=== PATIENT | female | born 1950 | race Caucasian/White ===

== ENCOUNTER → 2016-06-10 | Outpatient (CLI) | payer MEDICARE, BC ==
--- NOTE | 2016-06-10 16:12 | CT ---
EXAMINATION: CT paranasal sinuses HISTORY: Chronic sinusitis COMPARISON: None TECHNIQUE: Axial CT images obtained through the facial bones without contrast. Coronal and sagittal reconstructions obtained. FINDINGS: There is mild mucosal thickening within the left maxillary sinus. The ethmoid air cells, f rontal sinuses, and sphenoid sinuses are grossly patent. The sphenoethmoidal and frontoethmoidal rec esses are clear. The ostiomeatal complexes are clear bilaterally. Evidence of previous medial maxill ilya wall surgery is noted. The mastoid air cells are clear. The middle ears are also patent. No bony destruction or air-fluid level. The visualized facial bones appear grossly intact. Degenerative gladys nges are noted within the temporomandibular joints. The orbits and globes appear symmetric. IMPRESSION: 1. Mild left maxillary paranasal sinus disease, otherwise unremarkable sinuses.
== END ==
LOC: MW.DI 12:44
PROVIDERS: ATTEND Family Medicine
DX: J32.0 Chronic maxillary sinusitis (principal)
CPT/HCPCS: 70486; 70486-26

== ENCOUNTER 2017-01-06 15:07 | Emergency (ER) | payer MEDICARE, BC ==
[2017-01-06] MEDS ORDERED: Sodium Chloride 0.9% 10 ML Syringe FLUSH PRN (15:20)
[2017-01-06] MEDS ORDERED: Sodium Chloride 0.9% 1,000 ML IV ONE ×2 (15:20→17:12)
[2017-01-06] MEDS ORDERED: Ondansetron 4 MG/2 ML SDV IVPUSH ONE (15:20)
[2017-01-06] MEDS ORDERED: Sodium Chloride 0.9% 2.5 ML Syringe FLUSH PRN (15:20)
--- NOTE | 2017-01-06 15:58 | EDM.PDOC ---
ED HPI GENERAL MEDICAL PROBLEM - General Chief Complaint: Gastrointestinal Problem Stated Complaint: UNK Time Seen by Provider: 01/06/17 15:09 Source of Information: Reports: Patient History Limitations: Reports: No Limitations - History of Present Illness INITIAL COMMENTS - FREE TEXT/NARRATIVE: History of present illness: []Patient started having vomiting and diarrhea at 9:30 this morning denies any blood in her vomit or stool. She is not had any fevers or chills but has had sweats with diarrhea. She had a couple bad food exposures 2 and 3 days ago but did not have diarrhea until this morning. She has chronic gastrointestinal problems. Review of systems: As per history of present illness and below otherwise all systems reviewed and negative. Past medical history: As per history of present illness and as reviewed below otherwise noncontributory. Surgical history: As per history of present illness and as reviewed below otherwise noncontributory. Social history: No reported history of drug or alcohol abuse. Family history: As per history of present illness and as reviewed below otherwise noncontributory. Physical exam: General: Well developed, well nourished in NAD HEENT: Atraumatic, normocephalic, pupils reactive, negative for conjunctival pallor or scleral icterus, mucous membranes moist, throat clear, neck supple, nontender, trachea midline. Lungs: Clear to auscultation, breath sounds equal bilaterally, chest nontender. Heart: S1S2, regular, negative for clicks, rubs, or JVD. Abdomen: Decreased bowel sounds Soft, nondistended, nontender no rebound or guarding. Negative for masses or hepatosplenomegaly. Negative for costovertebral tenderness. Pelvis: Stable nontender. Genitourinary: Deferred. Rectal: Deferred. Extremities: Atraumatic, negative for cords or calf pain. Neurovascular unremarkable. Neuro: Awake, alert, oriented. Cranial nerves II through XII unremarkable. Cerebellum unremarkable. Motor and sensory unremarkable throughout. Exam nonfocal. Diagnostics: []CBC chemistry, UA and stool for C. difficile, salmonella, Shigella, sugar toxin Therapeutics: []IV fluids and Zofran given with improvement in symptoms Impression: []Acute gastroenteritis Plan: []Zofran every 6 hours as needed for nausea increase fluids as tolerated follow- up primary care physician return if symptoms worsen or change Definitive disposition and diagnosis as appropriate pending reevaluation and review of above. - Related Data Allergies Allergy/AdvReac Type Severity Reaction Status Date / Time hydrocodone Allergy Nausea and Verified 01/06/17 15:17 Vomiting morphine Allergy Nausea Verified 01/06/17 15:17 Home Meds: Home Meds Cefdinir 300 mg PO BID 01/06/17 [History] Esomeprazole [NexIUM] 40 mg PO ACBREAKFAST 01/06/17 [History] Fluticasone Propionate [Flonase Allergy Relief] 1 spray NS DAILY 01/06/17 [ History] Hydrochlorothiazide 25 mg PO DAILY 01/06/17 [History] Levothyroxine Sodium [Synthroid] 112 mcg PO ACBREAKFAST 01/06/17 [History] Losartan [Cozaar] 50 mg PO DAILY 01/06/17 [History] Ondansetron HCl [Zofran] 4 mg PO Q6HR PRN #16 tablet 01/06/17 [Rx] Potassium Chloride 20 meq PO DAILY 01/06/17 [History] Past Medical History HEENT History: Reports: None Cardiovascular History: Reports: Hypertension Respiratory History: Reports: None Gastrointestinal History: Reports: None Genitourinary History: Reports: None SQE History: Reports: None Musculoskeletal History: Reports: None Neurological History: Reports: None Psychiatric History: Reports: None Endocrine/Metabolic History: Reports: None Hematologic History: Reports: None Immunologic History: Reports: None Oncologic (Cancer) History: Reports: Thyroid Dermatologic History: Reports: None - Infectious Disease History Infectious Disease History: Reports: Chicken Pox, Measles - Past Surgical History Head Surgeries/Procedures: Reports: None HEENT Surgical History: Reports: None Cardiovascular Surgical History: Reports: None Respiratory Surgical History: Reports: None GI Surgical History: Reports: Cholecystectomy Female Surgical History: Reports: Hysterectomy Endocrine Surgical History: Reports: Thyroidectomy Musculoskeletal Surgical History: Reports: Knee Replacement Oncologic Surgical History: Reports: None Dermatological Surgical History: Reports: None Social & Family History - Family History Family Medical History: Noncontributory - Tobacco Use Smoking Status *Q: Never Smoker - Caffeine Use Caffeine Use: Reports: Coffee - Recreational Drug Use Recreational Drug Use: No ED ROS GENERAL - Review of Systems Review Of Systems: See Below (See history of present illness) ED EXAM, GI/ABD - Physical Exam Exam: See Below (See history of present illness) Course - Vital Signs Last Recorded V/S: Last Vital Signs Temp 36.3 C 01/06/17 15:17 Pulse 85 01/06/17 16:06 Resp 15 01/06/17 16:06 BP 143/68 H 01/06/17 16:06 Pulse Ox 99 01/06/17 16:06 - Orders/Labs/Meds Orders: Active Orders 24 hr Category Date Time Status CULTURE STOOL + CAMPY+SHIGATOX [RM] Stat Lab 01/06/17 16:10 Received Sodium Chloride 0.9% [Saline Flush] Med 01/06/17 15:20 Active 10 ml FLUSH ASDIRECTED PRN Sodium Chloride 0.9% [Saline Flush] Med 01/06/17 15:20 Active 2.5 ml FLUSH ASDIRECTED PRN Saline Lock Insert [OM.PC] Stat Oth 01/06/17 15:20 Ordered Medication Orders Sodium Chloride (Saline Flush) 10 ml FLUSH ASDIRECTED PRN PRN Reason: Keep Vein Open Last Admin: 01/06/17 15:29 Dose: 10 ml Sodium Chloride (Saline Flush) 2.5 ml FLUSH ASDIRECTED PRN PRN Reason: Keep Vein Open Last Admin: 01/06/17 15:29 Dose: 2.5 ml Labs: Laboratory Tests 01/06/17 01/06/17 01/06/17 Range/Units 15:32 15:32 16:12 WBC 16.24 H (4.0-11.0) K/uL RBC 4.86 (4.30-5.90) M/uL Hgb 15.4 (12.0-16.0) g/dL Hct 44.9 (36.0-46.0) % MCV 92.4 (80.0-98.0) fL MCH 31.7 (27.0-32.0) pg MCHC 34.3 (31.0-37.0) g/dL RDW Std Deviation 46.6 (28.0-62.0) fl RDW Coeff of Jenni 14 (11.0-15.0) % Plt Count 258 (150-400) K/uL MPV 10.20 (7.40-12.00) fL Neut % (Auto) 92.9 H (48.0-80.0) % Lymph % (Auto) 3.4 L (16.0-40.0) % [place] % (Auto) 3.6 (0.0-15.0) % Eos % (Auto) 0.0 (0.0-7.0) % Baso % (Auto) 0.1 (0.0-1.5) % Neut # (Auto) 15.1 H (1.4-5.7) K/uL Lymph # (Auto) 0.6 (0.6-2.4) K/uL [place] # (Auto) 0.6 (0.0-0.8) K/uL Eos # (Auto) 0.0 (0.0-0.7) K/uL Baso # (Auto) 0.0 (0.0-0.1) K/uL Nucleated RBC % 0.0 /100WBC Nucleated RBCs # 0 K/uL Sodium 140 (136-146) mmol/L Potassium 3.4 L (3.5-5.1) mmol/L Chloride 104 (98-110) mmol/L Carbon Dioxide 24 (21-31) mmol/L BUN 17 (6.0-23.0) mg/dL Creatinine 1.2 (0.6-1.5) mg/dL Est Cr Clr Drug Dosing 39.82 mL/min Estimated GFR (MDRD) 44.9 ml/min Glucose 130 H (60-110) mg/dL Calcium 10.3 (8.8-10.8) mg/dL Total Bilirubin 0.7 (0.1-1.5) mg/dL AST 16 (5-40) IU/L ALT 17 (8-54) IU/L Alkaline Phosphatase 84 (40-150) Total Protein 7.8 (6.0-8.0) g/dL Albumin 4.3 (3.4-4.8) g/dL Globulin 3.5 (2.0-3.5) g/dL Albumin/Globulin Ratio 1.2 L (1.3-2.8) Lipase 16 (7-80) U/L Urine Color YELLOW Urine Appearance CLEAR Urine pH 6.0 (5.0-8.0) Ur Specific [place] 1.020 (1.001-1.035) Urine Protein TRACE (NEGATIVE) mg/dL Urine Glucose (UA) NEGATIVE (NEGATIVE) mg/dL Urine Ketones 15 H (NEGATIVE) mg/dL Urine Occult Blood NEGATIVE (NEGATIVE) Urine Nitrite NEGATIVE (NEGATIVE) Urine Bilirubin NEGATIVE (NEGATIVE) Urine Urobilinogen 0.2 (<2.0) EU/dL Ur Leukocyte Esterase NEGATIVE (NEGATIVE) Urine RBC 0-1 (0-2/HPF) Urine WBC 0-1 (0-5/HPF) Ur Epithelial Cells FEW (NONE-FEW) Urine Bacteria RARE (NEGATIVE) Urine Mucus LIGHT (NONE-MOD) Meds: Medications Generic Name Dose Route Start Last Admin Trade Name Freq PRN Reason Stop Dose Admin Sodium Chloride 10 ml 01/06/17 15:20 01/06/17 15:29 Saline Flush FLUSH 10 ml ASDIRECTED PRN Administration Keep Vein Open Sodium Chloride 2.5 ml 01/06/17 15:20 01/06/17 15:29 Saline Flush FLUSH 2.5 ml ASDIRECTED PRN Administration Keep Vein Open Discontinued Medications Generic Name Dose Route Start Last Admin Trade Name Freq PRN Reason Stop Dose Admin Sodium Chloride 1,000 mls @ 999 mls/hr 01/06/17 15:20 01/06/17 15:29 Normal Saline IV 01/06/17 16:20 999 mls/hr .Bolus ONE Administration Sodium Chloride 1,000 mls @ 999 mls/hr 01/06/17 17:12 01/06/17 17:14 Normal Saline IV 01/06/17 18:12 999 mls/hr .Bolus ONE Administration Ondansetron HCl 4 mg 01/06/17 15:20 01/06/17 15:28 Zofran IVPUSH 01/06/17 15:21 4 mg ONETIME ONE Administration Departure - Departure Time of Disposition: 18:26 Disposition: Home, Self-Care 01 Condition: Good Clinical Impression: Acute gastroenteritis - Discharge Information Prescriptions: Ondansetron HCl [Zofran] 4 mg PO Q6HR PRN #16 tablet PRN Reason: Nausea Referrals: PCP,Unknown [Primary Care Provider] - Forms: ED Department Discharge Additional Instructions: The following information is given to patients seen in the emergency department who are being discharged to home. This information is to outline your options for follow-up care. We provide all patients seen in our emergency department with a follow-up referral. The need for follow-up, as well as the timing and circumstances, are variable depending upon the specifics of your emergency department visit. If you don't have a primary care physician on staff, we will provide you with a referral. We always advise you to contact your personal physician following an emergency department visit to inform them of the circumstance of the visit and for follow-up with them and/or the need for any referrals to a consulting specialist. The emergency department will also refer you to a specialist when appropriate. This referral assures that you have the opportunity for follow-up care with a specialist. All of these measure are taken in an effort to provide you with optimal care, which includes your follow-up. Under all circumstances we always encourage you to contact your private physician who remains a resource for coordinating your care. When calling for follow-up care, please make the office aware that this follow-up is from your recent emergency room visit. If for any reason you are refused follow-up, please contact the [facility] Emergency Department at and asked to speak to the emergency department charge nurse. Zofran for nausea, Tylenol Motrin for pain follow-up with your primary care doctor next week or return to the ER if symptoms worsen or change [facility] [address] [place] [id number] - My Orders Last 24 Hours: My Active Orders 01/06/17 15:20 Sodium Chloride 0.9% [Saline Flush] 10 ml FLUSH ASDIRECTED PRN Sodium Chloride 0.9% [Saline Flush] 2.5 ml FLUSH ASDIRECTED PRN Saline Lock Insert [OM.PC] Stat 01/06/17 16:10 CULTURE STOOL + CAMPY+SHIGATOX [RM] Stat - Assessment/Plan Last 24 Hours: My Active Orders 01/06/17 15:20 Sodium Chloride 0.9% [Saline Flush] 10 ml FLUSH ASDIRECTED PRN Sodium Chloride 0.9% [Saline Flush] 2.5 ml FLUSH ASDIRECTED PRN Saline Lock Insert [OM.PC] Stat 01/06/17 16:10 CULTURE STOOL + CAMPY+SHIGATOX [RM] Stat
== END 2017-01-06 18:54 | disposition home or self-care (01) ==
LOC: MW.ED 15:07
DX: K52.9 Noninfective gastroenteritis and colitis, unspecified (principal); I10 Essential (primary) hypertension; Z88.5 Allergy status to narcotic agent; Z79.899 Other long term (current) drug therapy
CPT/HCPCS: 36415; 80053; 81001; 83690; 85025; 87046; 87324; 96361; 96374; 99284; J2405; J7040; 87899; 99283

== ENCOUNTER 2020-08-31 19:58 | Emergency (ER) | payer MEDICARE, BC ==
[2020-08-31] MEDS ORDERED: Ondansetron 4 MG/2 ML SDV IVPUSH ONE ×2 (20:07→20:47)
[2020-08-31] MEDS ORDERED: Sodium Chloride 0.9% 2.5 ML Syringe FLUSH PRN (20:07)
[2020-08-31] MEDS ORDERED: HYDROmorphone 1 MG/ML Syringe IVPUSH ONE (20:07)
[2020-08-31] MEDS ORDERED: Sodium Chloride 0.9% 10 ML Syringe FLUSH PRN (20:07)
--- NOTE | 2020-08-31 20:07 | EDM.PDOC ---
ED HPI GENERAL MEDICAL PROBLEM - General Chief Complaint: Head Injury Stated Complaint: FALL Time Seen by Provider: 08/31/20 20:03 Source of Information: Reports: Patient History Limitations: Reports: No Limitations - History of Present Illness INITIAL COMMENTS - FREE TEXT/NARRATIVE: 70-year-old female presents for facial trauma following a fall. Patient is not on blood thinning medications. She did not lose consciousness. She tripped and fell forward landing on her face. She also hit her left knee and left wrist. She is complaining of pain in her frontal head, nose, left wrist, left knee. She has ambulated after the fall. She feels some nausea but has not vomited. She notes significant bleeding from her nose. well controlled prior to arrival. Anterior Head Pain Score (Numeric/FACES): 7 - Related Data Allergies Allergy/AdvReac Type Severity Reaction Status Date / Time hydrocodone Allergy Nausea and Verified 01/06/17 15:17 Vomiting morphine Allergy Nausea Verified 01/06/17 15:17 Home Meds: Home Meds Cefdinir 300 mg PO BID 01/06/17 [History] Esomeprazole [NexIUM] 40 mg PO ACBREAKFAST 01/06/17 [History] Fluticasone Propionate [Flonase Allergy Relief] 1 spray NS DAILY 01/06/17 [History] Hydrochlorothiazide 25 mg PO DAILY 01/06/17 [History] Levothyroxine Sodium [Synthroid] 112 mcg PO ACBREAKFAST 01/06/17 [History] Losartan [Cozaar] 50 mg PO DAILY 01/06/17 [History] Potassium Chloride 20 meq PO DAILY 01/06/17 [History] ondansetron HCL [Zofran] 4 mg PO Q6HR PRN #16 tablet 01/06/17 [Rx] Past Medical History HEENT History: Reports: None Cardiovascular History: Reports: Hypertension Respiratory History: Reports: None Gastrointestinal History: Reports: None Genitourinary History: Reports: None [employer]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 Musculoskeletal History: Reports: None Neurological History: Reports: None Psychiatric History: Reports: None Endocrine/Metabolic History: Reports: None Hematologic History: Reports: None Immunologic History: Reports: None Oncologic (Cancer) History: Reports: Thyroid Dermatologic History: Reports: None - Infectious Disease History Infectious Disease History: Reports: Chicken Pox, Measles - Past Surgical History Head Surgeries/Procedures: Reports: None HEENT Surgical History: Reports: None Cardiovascular Surgical History: Reports: None Respiratory Surgical History: Reports: None GI Surgical History: Reports: Cholecystectomy Female Surgical History: Reports: Hysterectomy Endocrine Surgical History: Reports: Thyroidectomy Musculoskeletal Surgical History: Reports: Knee Replacement Oncologic Surgical History: Reports: None Dermatological Surgical History: Reports: None Social & Family History - Family History Family Medical History: No Pertinent Family History - Caffeine Use Caffeine Use: Reports: Coffee ED ROS GENERAL - Review of Systems Review Of Systems: Comprehensive ROS is negative, except as noted in HPI. ED EXAM, HEAD INJURY - Physical Exam Exam: See Below Exam Limited By: No Limitations General Appearance: Alert, WD/WN, No Apparent Distress Head: Normocephalic, Other (no palpable bony deformity of forehead but is TTP with ecchymosis) Nexus Criteria: No: Posterior, Midline Cervical Tenderness, Evidence of Intoxication, Altered Level of Consciousness, Focal Neurological Deficit, Painful Distraction Injuries Eyes: Bilateral Eye: EOMI, PERRL Ears: Normal External Exam Nose: Other (swelling of bridge of nose compatible with nasal bone fracture, no significant deviation, bleeding in b/l nares without septal hematoma) Throat/Mouth: Normal Voice, No Airway Compromise Neck: Non-Tender Respiratory: No Respiratory Distress, Lungs Clear, Normal Breath Sounds, No Accessory Muscle Use Cardiovascular: Normal Peripheral Pulses, Regular Rate, Rhythm GI/Abdominal Exam: Soft, Non-Tender Extremities: Other (normal inspection; TTP of left wrist with palpable normal pulse and 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, abrasion to L knee without palpable deformity or joint line TTP) Skin: Normal Color, Warm/Dry #1 Interpretation EKG Date: 08/31/20 Time: 20:19 Rhythm: NSR Rate (Beats/Min): 69 [place]: Normal P-Wave: Present QRS: Normal ST-T: Normal QT: Normal [place]/PQ Interval: 181 Comparison: NA - No Prior EKG EKG Interpretation Comments: normal EKG Course - Vital Signs Last Recorded V/S: Last Vital Signs Temp 97.2 F 08/31/20 20:05 Pulse 79 08/31/20 20:05 Resp 18 08/31/20 20:05 BP 164/66 H 08/31/20 20:05 Pulse Ox 99 08/31/20 20:05 - Orders/Labs/Meds Orders: Active Orders 24 hr Category Date Time Status EKG Documentation Completion [RC] STAT Care 08/31/20 20:07 Active Sodium Chloride 0.9% [Saline Flush] Med 08/31/20 20:07 Active 10 ml FLUSH ASDIRECTED PRN Sodium Chloride 0.9% [Saline Flush] Med 08/31/20 20:07 Active 2.5 ml FLUSH ASDIRECTED PRN Saline Lock Insert [OM.PC] Stat Oth 08/31/20 20:07 Ordered Medication Orders Sodium Chloride (Sodium Chloride 0.9% 10 Ml Syringe) 10 ml FLUSH ASDIRECTED PRN PRN Reason: Keep Vein Open Last Admin: 08/31/20 20:20 Dose: 10 ml Documented by: CURT Sodium Chloride (Sodium Chloride 0.9% 2.5 Ml Syringe) 2.5 ml FLUSH ASDIRECTED PRN PRN Reason: Keep Vein Open Last Admin: 08/31/20 20:20 Dose: 2.5 ml Documented by: CURT Labs: Laboratory Tests 08/31/20 08/31/20 Range/Units 20:10 20:10 WBC 11.84 H (4.0-11.0) K/uL RBC 4.45 (4.30-5.90) M/uL Hgb 14.1 (12.0-16.0) g/dL Hct 41.2 (36.0-46.0) % MCV 92.6 (80.0-98.0) fL MCH 31.7 (27.0-32.0) pg MCHC 34.2 (31.0-37.0) g/dL RDW Std Deviation 48.0 (28.0-62.0) fl RDW Coeff of Jenni 14 (11.0-15.0) % Plt Count 311 (150-400) K/uL MPV 10.30 (7.40-12.00) fL Neut % (Auto) 63.6 (48.0-80.0) % Lymph % (Auto) 28.5 (16.0-40.0) % [place] % (Auto) 7.0 (0.0-15.0) % Eos % (Auto) 0.5 (0.0-7.0) % Baso % (Auto) 0.4 (0.0-1.5) % Neut # (Auto) 7.5 H (1.4-5.7) K/uL Lymph # (Auto) 3.4 H (0.6-2.4) K/uL [place] # (Auto) 0.8 (0.0-0.8) K/uL Eos # (Auto) 0.1 (0.0-0.7) K/uL Baso # (Auto) 0.1 (0.0-0.1) K/uL Nucleated RBC % 0.0 /100WBC Nucleated RBCs # 0 K/uL Sodium 139 (136-145) mmol/L Potassium 2.9 L (3.5-5.1) mmol/L Chloride 100 (98-107) mmol/L Carbon Dioxide 27.7 (21.0-32.0) mmol/L BUN 19 H (7.0-18.0) mg/dL Creatinine 1.7 H (0.6-1.0) mg/dL Est Cr Clr Drug Dosing 26.59 mL/min Estimated GFR (MDRD) 29.7 ml/min Glucose 121 H (74-106) mg/dL Calcium 9.2 (8.5-10.1) mg/dL Total Bilirubin 0.3 (0.2-1.0) mg/dL AST 16 (15-37) IU/L ALT 19 (14-63) IU/L Alkaline Phosphatase 79 (46-116) U/L Total Protein 7.4 (6.4-8.2) g/dL Albumin 3.6 (3.4-5.0) g/dL Globulin 3.8 (2.6-4.0) g/dL Albumin/Globulin Ratio 0.9 (0.9-1.6) Meds: Medications Generic Name Dose Route Start Last Admin Trade Name Freq PRN Reason Stop Dose Admin Sodium Chloride 10 ml 08/31/20 20:08/31/20 20:20 Sodium Chloride 0.9% 10 Ml Syringe FLUSH 10 ml ASDIRECTED PRN Administration Keep Vein Open Sodium Chloride 2.5 ml 08/31/20 20:08/31/20 20:20 Sodium Chloride 0.9% 2.5 Ml Syringe FLUSH 2.5 ml ASDIRECTED PRN Administration Keep Vein Open Discontinued Medications Generic Name Dose Route Start Last Admin Trade Name Freq PRN Reason Stop Dose Admin Hydromorphone HCl 0.5 mg 08/31/20 20:07 08/31/20 20:19 Hydromorphone 1 Mg/Ml Syringe IVPUSH 08/31/20 20:08 0.5 mg ONETIME ONE Administration Sodium Chloride 1,000 mls @ 999 mls/hr 08/31/20 20:40 08/31/20 21:24 Normal Saline IV 08/31/20 21:40 999 mls/hr .Bolus ONE Administration Metoclopramide HCl 10 mg 08/31/20 21:26 08/31/20 21:29 Metoclopramide 10 Mg/2 Ml Sdv IVPUSH 08/31/20 21:27 10 mg ONETIME ONE Administration Ondansetron HCl 4 mg 08/31/20 20:07 08/31/20 20:19 Ondansetron 4 Mg/2 Ml Sdv IVPUSH 08/31/20 20:08 4 mg ONETIME ONE Administration Ondansetron HCl 4 mg 08/31/20 20:47 08/31/20 21:11 Ondansetron 4 Mg/2 Ml Sdv IVPUSH 08/31/20 20:48 4 mg ONETIME ONE Administration Ondansetron HCl Confirm 08/31/20 20:48 08/31/20 21:11 Ondansetron 4 Mg/2 Ml Sdv Administered 08/31/20 20:49 Not Given Dose 4 mg .ROUTE .STK-MED ONE Potassium Chloride 40 meq 08/31/20 20:41 Potassium Chloride 20 Meq Tab.Er PO 08/31/20 20:42 ONETIME ONE - Re-Assessments/Exams Free Text/Narrative Re-Assessment/Exam: 08/31/20 20:11 We will get basic labs. Will treat pain and nausea. Will get imaging of the head, neck, face, left wrist, left knee. 08/31/20 20:41 Labs are remarkable for a mild elevated creatinine from baseline of 1.1-1.7 today. BUN is 19. Will give 1 L IV fluid bolus. Patient also also hypokalemic to 2.9, it appears that patient has had hypokalemia in the past. 40 mEq ordered p.o. 08/31/20 22:48 CTs and x-ray imaging are unremarkable aside from nasal bone fracture will discharge with PMD follow-up and ENT follow-up.. Patient has had multiple episodes of emesis in the emergency department and has been given multiple doses of antiemetic. Departure - Departure Time of Disposition: 22:49 Disposition: Home, Self-Care 01 Condition: Good Clinical Impression: CHI (closed head injury) Qualifiers: Encounter type: initial encounter Qualified Code(s): S09.90XA - Unspecified injury of head, initial encounter Nasal bone fracture Qualifiers: Encounter type: initial encounter Fracture type: closed Qualified Code(s): S02.2XXA - Fracture of nasal bones, initial encounter for closed fracture - Discharge Information Instructions: Head Injury, Adult, Nasal Fracture, [id number] Forms: ED Department Discharge Additional Instructions: Your head CT is normal. Your facial CT does show a nasal bone fracture. You can expect significant swelling of the nose for the next couple of weeks. If you notice any deformity and want to have it repaired ENT follow-up has been provided below. Dr. [facility], [address] [place] [address] [id number] [address] Shayan [facility] [address] [place] [id number] The following information is given to patients seen in the emergency department who are being discharged to home. This information is to outline your options for follow-up care. We provide all patients seen in our emergency department with a follow-up referral. The need for follow-up, as well as the timing and circumstances, are variable depending upon the specifics of your emergency department visit. If you don't have a primary care physician on staff, we will provide you with a referral. We always advise you to contact your personal physician following an emergency department visit to inform them of the circumstance of the visit and for follow-up with them and/or the need for any referrals to a consulting specialist. The emergency department will also refer you to a specialist when appropriate. This referral assures that you have the opportunity for follow-up care with a specialist. All of these measure are taken in an effort to provide you with optimal care, which includes your follow-up. Under all circumstances we always encourage you to contact your private physician who remains a resource for coordinating your care. When calling for follow-up care, please make the office aware that this follow-up is from your recent emergency room visit. If for any reason you are refused follow-up, please contact the [facility] Emergency Department at and asked to speak to the emergency department charge nurse. Please follow up with your primary care physician. If you do not have a primary care physician, see below: [facility] [address] [address] [facility] [address] [place], [place] [id number] [facility] [address] [place] [address] Sepsis Event Note (ED) - Focused Exam Vital Signs: Vital Signs Temp Pulse Resp BP Pulse Ox 08/31/20 20:05 97.2 F 79 18 164/66 H 99 - My Orders Last 24 Hours: My Active Orders 08/31/20 20:07 EKG Documentation Completion [RC] STAT Sodium Chloride 0.9% [Saline Flush] 10 ml FLUSH ASDIRECTED PRN Sodium Chloride 0.9% [Saline Flush] 2.5 ml FLUSH ASDIRECTED PRN Saline Lock Insert [OM.PC] Stat - Assessment/Plan Last 24 Hours: My Active Orders 08/31/20 20:07 EKG Documentation Completion [RC] STAT Sodium Chloride 0.9% [Saline Flush] 10 ml FLUSH ASDIRECTED PRN Sodium Chloride 0.9% [Saline Flush] 2.5 ml FLUSH ASDIRECTED PRN Saline Lock Insert [OM.PC] Stat
[2020-08-31 20:33] LABS: CARBON DIOXIDE,CO2 27.7 mmol/L (21.0-32.0); POTASSIUM,K 2.9 mmol/L (3.5-5.1)
[2020-08-31] MEDS ORDERED: Sodium Chloride 0.9% 1,000 ML IV ONE (20:40)
[2020-08-31] MEDS ORDERED: Potassium Chloride 20 MEQ Tab.ER PO ONE (20:41)
[2020-08-31] MEDS ORDERED: Ondansetron 4 MG/2 ML SDV ONE (20:48)
[2020-08-31] MEDS ORDERED: Metoclopramide 10 MG/2 ML SDV IVPUSH ONE ×2 (21:26→22:57)
--- NOTE | 2020-08-31 21:35 | CT ---
INDICATION: Head injury from fall TECHNIQUE: CT Head without i.v. contrast. Coronal and sagittal reformats were obtained. COMPARISON: None FINDINGS: CSF space: Unremarkable for age. Brain: No evidence of mass, acute infarction or hemorrhage is seen. No mass-effect or midline shift is seen. Mild diffuse cortical atrophy is noted. The brain parenchyma is otherwise normal in appearance with preservation of the peralta-white matter junction. Calvarium: The visualized paranasal sinuses are well aerated. The mastoid air cells are clear. The visualized orbits are grossly unremarkable. Bilateral comminuted and angulated nasal bone fractures are noted. IMPRESSIONS: 1. No evidence of acute infarction, intracranial hemorrhage, or mass-effect seen. 2. Bilateral comminuted and angulated nasal bone fractures are noted. Dictated by Donato Lees MD @ 08/31/2020 9:33:33 PM Please note that all CT scans at this facility use dose modulation, iterative reconstruction, and/or weight-based dosing when appropriate to reduce radiation dose to as low as reasonably achievable. Dictated by: Donato Lees MD @ 08/31/2020 21:33:39 (Electronically Signed)
--- NOTE | 2020-08-31 21:39 | CT ---
INDICATION: Cervical spine injury from fall TECHNIQUE: CT cervical spine without i.v. contrast. Coronal and sagittal reformats were obtained. COMPARISON: None FINDINGS: Alignment: Unremarkable. Bone: No acute fractures or aggressive bone lesions are identified. Disc: There are degenerative disc disease noted at C5-6 and C6-7. Scattered facet osteoarthritis is noted bilaterally. Soft tissue: The prevertebral soft tissues are unremarkable in appearance. The visualized lung apices and mediastinum are unremarkable. IMPRESSION: 1. No acute osseous injuries are identified. Please note that all CT scans at this facility use dose modulation, iterative reconstruction, and/or weight-based dosing when appropriate to reduce radiation dose to as low as reasonably achievable. Dictated by: Donato Lees MD @ 08/31/2020 21:37:11 (Electronically Signed)
--- NOTE | 2020-08-31 21:47 | CT ---
INDICATION: Face injury from fall TECHNIQUE: CT maxillofacial without i.v. contrast. Coronal and sagittal reformats were obtained. COMPARISON: None FINDINGS: Bone: Bilateral comminuted nasal bone fractures are present. There is a nondisplaced fracture in the perpendicular plate of the ethmoid bone. Joint: The temporomandibular joints are unremarkable in appearance. Sinus: See above. The ostiomeatal units are patent. The nasal turbinates are normal. The nasal septum is midline and intact. Orbit: The visualized orbits are grossly unremarkable. Soft tissue: Soft tissue swelling and soft tissue gas are present in the nasal bridge. IMPRESSION: 1. Bilateral comminuted nasal bone fractures are present. There is a nondisplaced fracture in the perpendicular plate of the ethmoid bone. Dictated by Donato Lees MD @ 08/31/2020 9:46:26 PM Please note that all CT scans at this facility use dose modulation, iterative reconstruction, and/or weight-based dosing when appropriate to reduce radiation dose to as low as reasonably achievable. Dictated by: Donato Lees MD @ 08/31/2020 21:46:31 (Electronically Signed)
--- NOTE | 2020-08-31 22:35 | CR ---
Indication: Fall Technique: Three views of the left knee Comparison: 12/20/2011 Findings/Impression: Bones: No acute fracture or dislocation. Slight contour irregularity of the lateral femoral condyle with small regional subchondral lucency on the frontal view, not clearly seen on the lateral view, which could be projectional or chronic. Joint spaces: Preserved. Small degenerative osteophytes. Soft tissues: Unremarkable. Dictated by Alphonso Rizzo MD @ 08/31/2020 10:34:[address] Alphonso Rizzo @ Aug 31 2020 10:34PM
--- NOTE | 2020-08-31 22:39 | CR ---
Indication: Fall Technique: Three views of the left wrist Comparison: None available Findings/Impression: Bones: An apparent small, faint curvilinear lucency in the medial aspect of the distal radial articular surface on the oblique view which could be projectional, not seen on the other views, without significant regional soft tissue swelling. Otherwise, no acute displaced fracture seen. No dislocation. Joint spaces: Mild degenerative changes at the 1st carpometacarpal joint. Soft tissues: Unremarkable. Dictated by Alphonso Rizzo MD @ 08/31/2020 10:38:[address] Alphonso Rizzo @ Aug 31 2020 10:38PM
[2020-08-31] MEDS ORDERED: Potassium Chloride 10% 20 MEQ/15 ML Soln 15 ML UD Cup PO ONE (22:49)
[2020-08-31] MEDS ORDERED: Potassium Chloride 10% 20 MEQ/15 ML Soln 30 ML UD Cup ONE (22:57)
[2020-08-31] MEDS ORDERED: Metoclopramide 10 MG/2 ML SDV ONE (22:58)
[2020-08-31] MEDS ORDERED: Potassium Chloride 10% 20 MEQ/15 ML Soln 30 ML UD Cup PO ONE (23:04)
== END 2020-08-31 23:35 | disposition home or self-care (01) ==
LOC: MW.ED 19:58
DX: S02.2XXA Fracture of nasal bones, initial encounter for closed fracture (principal); I10 Essential (primary) hypertension; Z79.899 Other long term (current) drug therapy; W01.0XXA Fall on same level from slipping, tripping and stumbling without subsequent striking against object, initial encounter
CPT/HCPCS: 36415; 70450; 70486; 72125; 73110; 73562; 80053; 85025; 93005; 96374; 96375; 96376; 99284; A9270; J1170; J2405; J2765; J7030; 93010

== ENCOUNTER 2022-10-29 13:03 | Observation (INO) | payer MEDICARE, BC ==
[2022-10-29] MEDS ORDERED: Sodium Chloride 0.9% 10 ML Syringe FLUSH PRN ×2 (13:52→15:54)
[2022-10-29] MEDS ORDERED: Sodium Chloride 0.9% 2.5 ML Syringe FLUSH PRN ×2 (13:52→15:54)
[2022-10-29] MEDS ORDERED: Ondansetron 4 MG/2 ML SDV IVPUSH ONE (14:03)
[2022-10-29 14:24] LABS: BASOPHILS PERCENT AUTO 0.4 % (0.0-1.5); EOSINOPHILS ABSOLUTE AUTO 0.1 K/uL (0.0-0.7); EOSINOPHILS PERCENT AUTO 0.7 % (0.0-7.0); HEMATOCRIT 38.2 % (36.0-46.0); HEMOGLOBIN 12.8 g/dL (12.0-16.0); LYMPHOCYTES ABSOLUTE AUTO 2.2 K/uL (0.6-2.4); LYMPHOCYTES PERCENT AUTO 30.3 % (16.0-40.0); MEAN CORPUSCULAR HEMOGLOBIN 30.9 pg (27.0-32.0); MEAN CORPUSCULAR HGB CONC 33.5 g/dL (31.0-37.0); MEAN CORPUSCULAR VOLUME 92.3 fL (80.0-98.0); MONOCYTES ABSOLUTE AUTO 0.5 K/uL (0.0-0.8); NEUTROPHILS ABSOLUTE AUTO 4.5 K/uL (1.4-5.7); NEUTROPHILS PERCENT AUTO 61.6 % (48.0-80.0); NRBC ABSOLUTE 0 K/uL; PLATELET COUNT,PLT 223 K/uL (150-400); RED BLOOD CELL COUNT 4.14 M/uL (4.30-5.90); WHITE BLOOD CELL COUNT,WBC 7.26 K/uL (4.0-11.0)
[2022-10-29 14:31] LABS: CREATININE,URINE RAND 266.9 mg/dL; POTASSIUM,URINE RANDOM 20.5 mmol/L
[2022-10-29 14:48] LABS: ALBUMIN 3.2 g/dL (3.4-5.0); BILIRUBIN TOTAL 0.5 mg/dL (0.2-1.0); CALCIUM 5.8 mg/dL (8.5-10.1); CARBON DIOXIDE,CO2 28.2 mmol/L (21.0-32.0); CREATININE 1.2 mg/dL (0.6-1.0); EST CRCL DRUG DOSING (CG) 36.59 mL/min; MAGNESIUM 0.4 mg/dL (1.8-2.4); POTASSIUM,K 2.7 mmol/L (3.5-5.1); PROTEIN TOTAL,TP 6.4 g/dL (6.4-8.2)
[2022-10-29] MEDS ORDERED: Magnesium Sulfate/Water 2 GM in Premix Bag 1 BAG IV ONE ×2 (15:20→18:22)
[2022-10-29] MEDS ORDERED: Potassium Chloride 20 MEQ Tab.ER PO ONE ×2 (15:27→16:30)
[2022-10-29] MEDS ORDERED: Calcium Gluconate 10% 1 GM/10 ML SDV IV ONE (15:27)
[2022-10-29] MEDS ORDERED: Albuterol/Ipratropium 3.0-0.5 MG/3 ML Neb Soln NEB PRN (15:54)
[2022-10-29] MEDS ORDERED: Ondansetron 4 MG/2 ML SDV IVPUSH PRN (15:54)
[2022-10-29] MEDS ORDERED: Acetaminophen 325 MG Tab PO PRN (15:54)
[2022-10-29] MEDS ORDERED: Sodium Chloride 0.9% 20 ML SDV IV PRN (15:54)
[2022-10-29 17:47] LABS: CALCIUM 6.6 mg/dL (8.5-10.1); CARBON DIOXIDE,CO2 26.7 mmol/L (21.0-32.0); CREATININE 1.2 mg/dL (0.6-1.0); EST CRCL DRUG DOSING (CG) 37.36 mL/min; MAGNESIUM 1.2 mg/dL (1.8-2.4); PHOSPHORUS 3.1 mg/dL (2.6-4.7); POTASSIUM,K 2.7 mmol/L (3.5-5.1)
[2022-10-29] MEDS: Potassium Chloride 20 MEQ Tab.ER PO SCH ×2 (19:46→21:11)
[2022-10-29 23:07] LABS: MAGNESIUM 1.5 mg/dL (1.8-2.4); POTASSIUM,K 3.2 mmol/L (3.5-5.1)
[2022-10-30] MEDS ORDERED: Potassium Chloride 20 MEQ Tab.ER PO ONE (00:04)
[2022-10-30] MEDS ORDERED: Magnesium Sulfate/Water 2 GM in Premix Bag 1 BAG IV ONE (00:05)
[2022-10-30] MEDS: Levothyroxine 112 MCG Tab PO SCH ×2 (06:10→06:47)
[2022-10-30 06:13] LABS: BASOPHILS PERCENT AUTO 0.5 % (0.0-1.5); EOSINOPHILS ABSOLUTE AUTO 0.1 K/uL (0.0-0.7); EOSINOPHILS PERCENT AUTO 0.9 % (0.0-7.0); HEMOGLOBIN 12.9 g/dL (12.0-16.0); LYMPHOCYTES ABSOLUTE AUTO 1.4 K/uL (0.6-2.4); LYMPHOCYTES PERCENT AUTO 22.3 % (16.0-40.0); MEAN CORPUSCULAR HEMOGLOBIN 31.5 pg (27.0-32.0); MEAN CORPUSCULAR HGB CONC 33.9 g/dL (31.0-37.0); MEAN CORPUSCULAR VOLUME 92.9 fL (80.0-98.0); MONOCYTES ABSOLUTE AUTO 0.5 K/uL (0.0-0.8); MONOCYTES PERCENT AUTO 7.9 % (0.0-15.0); NEUTROPHILS ABSOLUTE AUTO 4.4 K/uL (1.4-5.7); NEUTROPHILS PERCENT AUTO 68.4 % (48.0-80.0); NRBC ABSOLUTE 0 K/uL; PLATELET COUNT,PLT 205 K/uL (150-400); RED BLOOD CELL COUNT 4.09 M/uL (4.30-5.90); WHITE BLOOD CELL COUNT,WBC 6.45 K/uL (4.0-11.0)
[2022-10-30 06:36] LABS: A/G RATIO 0.9 (0.9-1.6); ALBUMIN 2.9 g/dL (3.4-5.0); BILIRUBIN TOTAL 0.5 mg/dL (0.2-1.0); CALCIUM 6.7 mg/dL (8.5-10.1); CARBON DIOXIDE,CO2 25.9 mmol/L (21.0-32.0); CREATININE 1.1 mg/dL (0.6-1.0); EST CRCL DRUG DOSING (CG) 40.76 mL/min; MAGNESIUM 2.1 mg/dL (1.8-2.4); PHOSPHORUS 3.2 mg/dL (2.6-4.7); PROTEIN TOTAL,TP 6.1 g/dL (6.4-8.2)
[2022-10-30] MEDS ORDERED: Calcium Gluconate 10% 1 GM/10 ML SDV IV ONE (07:29)
[2022-10-30] MEDS ORDERED: Pantoprazole 40 MG in Sodium Chloride 0.9% 10 ML IVPUSH SCH (07:30)
[2022-10-30] MEDS ORDERED: Metoprolol Succinate 25 MG Tab.ER PO SCH (09:00)
[2022-10-30] MEDS: Potassium Chloride 20 MEQ Tab.ER PO SCH (09:01)
== END 2022-10-30 13:45 | disposition home or self-care (01) ==
LOC: MW.ED 13:03 → MW.MS 16:06
PROVIDERS: ADMIT Family Medicine; ATTEND Family Medicine
DX: E83.42 Hypomagnesemia (principal); E87.6 Hypokalemia; E83.51 Hypocalcemia; R19.7 Diarrhea, unspecified; I10 Essential (primary) hypertension; E89.0 Postprocedural hypothyroidism; Z88.5 Allergy status to narcotic agent; Z79.899 Other long term (current) drug therapy; Z88.8 Allergy status to other drugs, medicaments and biological substances; Z79.890 Hormone replacement therapy; Z88.1 Allergy status to other antibiotic agents; Z90.49 Acquired absence of other specified parts of digestive tract; Z90.710 Acquired absence of both cervix and uterus; Z96.659 Presence of unspecified artificial knee joint; Z85.850 Personal history of malignant neoplasm of thyroid; Z91.148 Patient's other noncompliance with medication regimen for other reason
CPT/HCPCS: 36415; 71046; 80048; 80053; 82306; 82330; 82436; 82570; 83735; 83935; 83970; 84100; 84132; 84133; 84300; 85025; 87324; 93005; A9270; C9113; J0612; J2405; J3475; J3490; 93010; 99284